=== PATIENT | female | born 1950 | race African-American/Black ===

== ENCOUNTER 2023-02-18 23:52 | Emergency (ER) | payer MEDICARE ==
[~2023-02-18] VITALS: Ht 165.1 cm; Wt 90.7 kg
[2023-02-19 01:20] LABS: BASO % 0.3 % (0.0-1.0); HEMATOCRIT 40.5 % (37.0-47.0); LYMPH # 0.9 10*3/uL (1.3-4.4); LYMPH % 8.8 % (27.0-41.0); MEAN CELL VOLUME 88.8 fl (81.0-99.0); MEAN CORPUSCULAR HGB 27.4 pg (27.0-31.0); MEAN CORPUSCULAR HGB CONC 30.9 g/dl (33.0-37.0); MEAN PLATELET VOLUME 11.5 fl (9.6-12.3); MONO # 0.5 10*3/uL (0.1-1.0); MONO % 5.3 % (3.0-9.0); NEUT # 8.4 10*3/uL (2.3-7.9); NEUT % 85.3 % (47.0-73.0); PLATELET COUNT AUTOMATED 480 10*3/uL (130-400); RED BLOOD COUNT 4.56 10*6/uL (4.10-5.10); RED CELL DISTRI WIDTH 14.5 % (0-14.5); WHITE BLOOD COUNT 9.8 10*3/uL (4.8-10.8)
[2023-02-19 01:43] LABS: POTASSIUM 4.9 mmol/L (3.4-5.1); TOTAL PROTEIN 6.9 gm/dL (6.0-8.0)
[2023-02-19 02:27] LABS: BILIRUBIN Negative (Negative); BLOOD Trace-Lysed (Negative); CLARITY Cloudy (Clear); COLOR Yellow (Yellow); GLUCOSE Trace (Negative); KETONE Trace (Negative); LEUKO ESTERASE Negative (Negative); NITRITE Negative (Negative); SPECIFIC GRAVITY 1.015 (1.001-1.030); UROBILINOGEN 0.2 E.U./dl (0.0-1.0)
[2023-02-19 02:55] LABS: BACTERIA TRACE; EPITHELIAL CELLS 16-20
[2023-02-19 02:56] LABS: MUCOUS 1+
[2023-02-19] MEDS ORDERED: HYDROCODONE-AC1 EAC1 PO (08:09)
== END 2023-02-19 08:00 | disposition home or self-care (01) ==
LOC: ED 23:52
PROVIDERS: Emergency Medicine
DX: C78.6 Secondary malignant neoplasm of retroperitoneum and peritoneum (principal); N13.30 Unspecified hydronephrosis; R10.32 Left lower quadrant pain